=== PATIENT | female | born 1950 | race Caucasian/White ===

== ENCOUNTER → 2018-07-05 10:34 | Outpatient (CLI) | payer MEDICARE | END | disposition home or self-care (01) | LOC: D.US 10:34 | DX: I12.9 Hypertensive chronic kidney disease with stage 1 through stage 4 chronic kidney disease, or unspecified chronic kidney disease (principal); N18.3 Chronic kidney disease, stage 3 (moderate); R19.7 Diarrhea, unspecified; Z68.23 Body mass index [BMI] 23.0-23.9, adult ==